=== PATIENT | male | born 1970 | race American Indian/Alaskan Native ===

== ENCOUNTER 2021-10-14 16:34 | Emergency (ER) | payer MEDICARE ==
[2021-10-14 16:59] VITALS: BP 162/98
[2021-10-14] MEDS ORDERED: KETOROLAC 30 MG/1 ML INJ IM SCH (18:29)
--- NOTE | 2021-10-14 18:31 | Event Note ---
ED Screening Note ED Screening Note: Patient presenting with atraumatic back pain radiating down to his right lower extremity. History of sciatica, symptoms are similar. No bladder or bowel incontinence. No fever or chills. No nausea vomiting headache or weakness. general: Nontoxic appearing no acute distress Cardiac: Regular rate, normal heart sounds Respiratory: Normal lung sounds bilaterally no use of crate icer muscles GI/-normal sounds, nontender no guarding Musculoskeletal-paralumbar tenderness Neuro-alert oriented x4. In the setting of a significantly high volume and record number of patients presenting to the emergency department and the fact that we have a limited space to see patients we have implemented the provider in triage protocol this allows an expedited initial exam of patients that might otherwise have left without being seen or who would wait longer than usual to be seen by provider. I interviewed the patient and performed a limited physical exam. This patient is a pulled from the waiting room to triage room for an initial assessment of adrenal studies and then returned to the waiting room pending results of the studies. The ultimate final evaluation and disposition may be performed by another provider depending on room and provider availability.
[2021-10-14] MEDS ORDERED: dexAMETHasone 20 MG/5 ML VIAL IM ONE (20:00)
[2021-10-14] MEDS ORDERED: HYDROcodone/ACETAMINOPHEN 5-325 MG TAB PO SCH (20:00)
--- NOTE | 2021-10-14 20:18 | Emergency Department Report ---
ED Back Pain/Injury HPI - General Chief Complaint: Back Pain/Injury Stated Complaint: SCIATIC PAIN/ HAD SHOT AT MD OFFICE Source: patient Limitations: No Limitations - History of Present Illness Initial Comments: 51-year-old male history of sciatica presenting with low back pain. No fall or injury, pain is consistent with his sciatica episodes, does not radiate to his groin abdomen or pelvis area, pain is worse with ambulating and sitting, improves with rest. MD Complaint: back pain -: Gradual Similar Symptoms Previously: No Place: home Radiation: none Improves With: none Worsens With: movement, sitting upright, walking Context: other Associated Symptoms: numbness, difficulty walking. denies: confusion, weakness, chest pain, cough, difficulty urinating, diaphoresis, incontinence, fever/chills, constipation, headaches, abdominal pain, loss of appetite, nausea/vomiting, rash, seizure, shortness of breath, syncope - Related Data Previous Rx's Medication Instructions Recorded Last Taken Type Cyclobenzaprine [Flexeril] 10 mg PO TID PRN #20 10/14/21 Unknown Rx Diclofenac Sodium 75 mg PO BID PRN #20 10/14/21 Unknown Rx Allergies Allergy/AdvReac Type Severity Reaction Status Date / Time No Known Allergies Allergy Unverified 10/14/21 19:22 ED Review of Systems ROS: Stated complaint: SCIATIC PAIN/ HAD SHOT AT MD OFFICE Other details as noted in HPI Constitutional: no symptoms reported Eyes: as per HPI Respiratory: no symptoms reported Cardiovascular: as per HPI. denies: chest pain Endocrine: denies: intolerance to cold, intolerance to heat Gastrointestinal: denies: nausea, vomiting Genitourinary: denies: urgency, dysuria, frequency Musculoskeletal: back pain, myalgia. denies: joint swelling Skin: as per HPI Neurological: denies: headache, weakness Psychiatric: denies: as per HPI ED Past Medical Hx - Past Medical History Previous Medical History?: No - Surgical History Past Surgical History?: No - Medications Home Medications: Home Medications Medication Instructions Recorded Confirmed Last Taken Type Cyclobenzaprine [Flexeril] 10 mg PO TID PRN #20 10/14/21 Unknown Rx Diclofenac Sodium 75 mg PO BID PRN #20 10/14/21 Unknown Rx ED Physical Exam - General Limitations: No Limitations ED Course Vital Signs 10/14/21 16:57 Temperature 98.5 F Pulse Rate 86 Respiratory 18 Rate Blood Pressure 162/98 [Left] O2 Sat by Pulse 99 Oximetry Critical care attestation.: If time is entered above; I have spent that time in minutes in the direct care of this critically ill patient, excluding procedure time. ED Disposition Clinical Impression: Lumbar radiculopathy, Sciatica Disposition: HOME / SELF CARE / HOMELESS Is pt being admited?: No Does the pt Need Aspirin: No Condition: Stable Instructions: Radicular Pain Prescriptions: Diclofenac Sodium 75 mg PO BID PRN #20 PRN Reason: Pain , Severe (7-10) Cyclobenzaprine [Flexeril] 10 mg PO TID PRN #20 PRN Reason: Muscle Spasm Referrals: NICANOR HARE III, MD [Referring] - 3-5 Days Forms: Work/School Release Form(ED)
== END 2021-10-15 18:53 | disposition left against medical advice (07) ==
LOC: ED 16:34
DX: M54.16 Radiculopathy, lumbar region (principal); M54.30 Sciatica, unspecified side
CPT/HCPCS: 96372; 99281; J1100; J1885